=== PATIENT | male | born 1935 | race Two or more races ===

== ENCOUNTER → 2018-05-01 | Outpatient (CLI) | payer MEDICARE, OTHER | END | disposition home or self-care (01) | LOC: MSC 15:00 | PROVIDERS: ATTEND Anesthesiology | DX: M17.0 Bilateral primary osteoarthritis of knee (principal); M54.16 Radiculopathy, lumbar region; M54.5 Low back pain; M25.9 Joint disorder, unspecified; M62.830 Muscle spasm of back ==

== ENCOUNTER 2018-05-29 14:00 | Outpatient (CLI) | payer MEDICARE, OTHER | END 2018-05-29 23:59 | disposition home or self-care (01) | LOC: MSC 14:00 | PROVIDERS: ATTEND Anesthesiology | DX: M17.0 Bilateral primary osteoarthritis of knee (principal); M79.605 Pain in left leg; M79.604 Pain in right leg; M54.16 Radiculopathy, lumbar region; M62.830 Muscle spasm of back; M25.9 Joint disorder, unspecified ==

== ENCOUNTER 2018-09-06 08:17 | Day surgery (SDC) | payer MEDICARE, OTHER ==
[2018-09-06] MEDS ORDERED: IOHEXOL 240MG/ML 0 ML IV ONE (09:20)
[2018-09-06] MEDS ORDERED: methylPREDNISolone ACETATE 80 MG/ML VIAL ONE (09:20)
[2018-09-06] MEDS ORDERED: LIDOCAINE HCL/PF 1% 30 ML SDV ONE (09:20)
[2018-09-06] MEDS ORDERED: BUPIVACAINE 0.25% 75 MG/30 ML VIAL ONE (09:20)
== END 2018-09-06 10:45 | disposition home or self-care (01) ==
LOC: DS 08:17
PROVIDERS: ATTEND Anesthesiology
DX: M47.816 Spondylosis without myelopathy or radiculopathy, lumbar region (principal); M51.16 Intervertebral disc disorders with radiculopathy, lumbar region
CPT/HCPCS: 72100-TC; A6209; J1040; J3490; Q9966; Z7610

== ENCOUNTER 2022-07-26 09:55 | Outpatient (CLI) | payer MEDICARE, OTHER | END 2022-07-26 23:59 | disposition home or self-care (01) | LOC: MSC 09:55 | PROVIDERS: ATTEND Anesthesiology | DX: M47.27 Other spondylosis with radiculopathy, lumbosacral region (principal); M62.830 Muscle spasm of back; M51.36 Other intervertebral disc degeneration, lumbar region; M17.0 Bilateral primary osteoarthritis of knee; M25.9 Joint disorder, unspecified ==

== ENCOUNTER 2022-08-23 11:00 | Outpatient (CLI) | payer MEDICARE, OTHER | END 2022-08-23 23:59 | disposition home or self-care (01) | LOC: MSC 11:00 | PROVIDERS: ATTEND Anesthesiology | DX: M47.27 Other spondylosis with radiculopathy, lumbosacral region (principal); M51.36 Other intervertebral disc degeneration, lumbar region; M62.830 Muscle spasm of back; M17.0 Bilateral primary osteoarthritis of knee; M25.9 Joint disorder, unspecified; Z79.891 Long term (current) use of opiate analgesic; Z79.899 Other long term (current) drug therapy ==